=== PATIENT | female | born 1980 | race Caucasian/White ===

== ENCOUNTER 2018-02-14 05:41 | Emergency (ER) | END 2018-02-14 10:27 | disposition home or self-care (01) ==

== ENCOUNTER 2018-02-16 09:09 | Emergency (ER) | END 2018-02-16 15:31 | disposition home or self-care (01) ==

== ENCOUNTER 2018-02-17 12:33 | Inpatient (IN) | END 2018-02-20 20:00 | disposition home or self-care (01) | DRG 781 ==

== ENCOUNTER 2019-03-25 07:57 | Emergency (ER) | payer OTHER ==
[~2019-03-25] VITALS: Ht 157.5 cm; Wt 100.0 kg
[~2019-03-25 07:57] MED LIST: NAPR-985 PO
[2019-03-25 08:00] VITALS: BP 139/68; PULSE 69; RESP 18; Ht 157.5 cm; Wt 100.0 kg
== END 2019-03-25 10:25 | disposition home or self-care (01) ==
LOC: FTE 07:57
DX: O20.0 Threatened abortion (principal); Z3A.01 Less than 8 weeks gestation of pregnancy
CPT/HCPCS: 36415; 76801; 76817; 81001; 84702; 85025; 86900; 86901; Z7502

== ENCOUNTER 2019-03-27 06:15 | Emergency (ER) | payer OTHER ==
[~2019-03-27] VITALS: Ht 157.5 cm; Wt 88.7 kg
[2019-03-27 06:21] VITALS: BP 127/58; PULSE 80; RESP 16; Ht 157.5 cm; Wt 88.7 kg
== END 2019-03-27 07:53 | disposition home or self-care (01) ==
LOC: FTE 06:15
DX: O03.9 Complete or unspecified spontaneous abortion without complication (principal)
CPT/HCPCS: 36415; 84702; 99283